=== PATIENT | male | born 1965 | race Caucasian/White ===

== ENCOUNTER 2021-02-23 11:27 | Emergency (ER) | payer SELFPAY | END 2021-02-23 11:50 | disposition left against medical advice (07) | LOC: JD.ED 11:27 | DX: Z53.21 Procedure and treatment not carried out due to patient leaving prior to being seen by health care provider (principal) ==

== ENCOUNTER 2021-02-23 15:40 | Emergency (ER) | payer MEDICAID ==
--- NOTE | 2021-02-23 17:25 | EDM.PDOC ---
ED HPI GENERAL MEDICAL PROBLEM - General Chief Complaint: Respiratory Problem Stated Complaint: COVID TEST Time Seen by Provider: 02/23/21 15:44 Source of Information: Reports: Patient, RN Notes Reviewed History Limitations: Reports: No Limitations - History of Present Illness INITIAL COMMENTS - FREE TEXT/NARRATIVE: Patient is a 55-year-old male presenting to the emergency department with complaints of 2-day history of cough, nasal congestion, shortness of breath, and body aches. Symptoms are mild and he feels it may be related to dust that he is exposed to out in [place]. He wants to confirm that is not of Covid. Denies any chest pain. He has had no fever, chills, nausea, or vomiting. Denies any chronic medical conditions. Generalized Pain Score (Numeric/FACES): 3 - Related Data Allergies Allergy/AdvReac Type Severity Reaction Status Date / Time No Known Allergies Allergy Verified 02/23/21 15:51 Home Meds: Home Meds . [No Known Home Meds] 02/23/21 [History] Past Medical History - Past Health History Medical/Surgical History: Denies Medical/Surgical History Social & Family History - Tobacco Use Tobacco Use Status *Q: Current Every Day Tobacco User Years of Tobacco use: 40 Packs/Tins Daily: 1 - Caffeine Use Caffeine Use: Reports: Coffee, Energy Drinks - Recreational Drug Use Recreational Drug Use: No ED ROS GENERAL - Review of Systems Review Of Systems: Comprehensive ROS is negative, except as noted in HPI. ED EXAM, GENERAL - Physical Exam Exam: See Below Exam Limited By: No Limitations General Appearance: Alert, WD/WN, No Apparent Distress Respiratory/Chest: No Respiratory Distress, Lungs Clear, Normal Breath Sounds, No Accessory Muscle Use, Chest Non-Tender Cardiovascular: Normal Peripheral Pulses, Regular Rate, Rhythm, No Edema, No Gallop, No JVD, No Murmur, No Rub GI/Abdominal: Normal Bowel Sounds, Soft, Non-Tender, No Organomegaly, No Distention, No Abnormal Bruit, No Mass Neurological: Alert, Oriented, Normal Cognition, Normal Gait, No Motor/Sensory Deficits Psychiatric: Normal Affect, Normal Mood Skin Exam: Warm, Dry, Intact, Normal Color, No Rash Course - Vital Signs Last Recorded V/S: Last Vital Signs Temp 98.2 F 02/23/21 15:48 Pulse 93 02/23/21 15:48 Resp 18 02/23/21 15:48 BP 130/96 H 02/23/21 15:48 Pulse Ox 96 02/23/21 15:48 - Orders/Labs/Meds Labs: Laboratory Tests 02/23/21 Range/Units 15:45 SARS-CoV-2 RNA ([facility]) Negative (NEGATIVE) - Re-Assessments/Exams Free Text/Narrative Re-Assessment/Exam: Patient is a 55-year-old male presenting to the emergency department with complaints of cough, body aches, nasal congestion, shortness of breath. Exam is unremarkable. Oxygen saturation on arrival to ER is 96% on room air. He is afebrile. I have ordered Covid and influenza testing as well as chest x-ray. 02/23/21 17:24 Chest x-ray shows no acute abnormalities. Covid and influenza are negative. Patient is likely suffering from viral illness. We will discharge him home with symptomatic treatment. Discharge instructions as documented. Departure - Departure Time of Disposition: 17:25 Disposition: Home, Self-Care 01 Condition: Good Clinical Impression: Viral illness - Discharge Information *PRESCRIPTION DRUG MONITORING PROGRAM REVIEWED*: No *COPY OF PRESCRIPTION DRUG MONITORING REPORT IN PATIENT BLANCA: No Instructions: Viral Illness, Adult Referrals: PCP,None [Primary Care Provider] - Forms: ED Department Discharge Additional Instructions: Use Tylenol and ibuprofen as needed for discomfort. Increase fluid intake. You should experience any worsening symptoms, please not hesitate to return to the ER.
--- NOTE | 2021-02-23 18:18 | CR ---
Chest: Frontal view of the chest was obtained. Comparison: No prior chest imaging is available. Heart size and mediastinum are within normal limits. Lungs are clear with no acute parenchymal change. No acute bony abnormality is appreciated. Impression: 1. Nothing acute is seen on frontal chest x-ray. Diagnostic code #1
== END 2021-02-23 17:40 | disposition home or self-care (01) ==
LOC: JD.ED 15:40
DX: B34.9 Viral infection, unspecified (principal); Z72.0 Tobacco use; Z20.822 Contact with and (suspected) exposure to COVID-19
CPT/HCPCS: 71045; 71045-26; 87804; 99283-25; U0002